=== PATIENT | male | born 1980 | race Hispanic/Latino ===

== ENCOUNTER 2023-03-17 11:48 | Emergency (ER) | payer SELFPAY ==
[2023-03-17] VITALS (8 sets, daily range): BP systolic 120–143; BP diastolic 77–104
[~2023-03-17] VITALS: Ht 165.1 cm; Wt 78.4 kg
[2023-03-17 12:41] LABS: URINE BILIRUBIN - DIPSTICK SEE COMMNET (NEGATIVE); URINE BLOOD DIPSTICK NEGATIVE (NEGATIVE); URINE COLOR YELLOW; URINE GLUCOSE - DIPSTICK NEGATIVE (NEGATIVE); URINE KETONE TRACE mg/dL (NEGATIVE); URINE LEUK ESTERASE NEGATIVE (NEGATIVE); URINE PH 5.5 (4.5-8.0); URINE PROTEIN - DIPSTICK 30 mg/dL (NEG-TRACE); URINE SPECIFIC GRAVITY >=1.030; URINE UROBILINOGEN - DIPSTICK 0.2 E.U./dL (0.2)
[2023-03-17 12:42] LABS: URINE NITRITE - DIPSTICK NEGATIVE (Negative)
[2023-03-17 12:53] LABS: URINE CALCIUM OXALATE CRYSTALS FEW lpf
[2023-03-17 12:54] LABS: URINE MUCUS MODERATE hpf (NONE-FEW)
[2023-03-17 12:55] LABS: URINE HYALINE CAST FEW lpf (NONE-RARE)
[2023-03-17 13:10] LABS: BASO% 0.8 % (0-3); EOS% 1.2 % (0-8); HEMATOCRIT 42.9 % (39.0-50.0); HEMOGLOBIN 14.4 g/dl (14.0-18.0); IMMATURE GRANULOCYTES 0.1 % (0.0-5.0); LYMPH% 22.9 % (15-41); MEAN CELL VOLUME 92.3 fL CALC (80.0-100.0); MEAN CORPUSCULAR HGB CONC 33.6 g/dL CAL (32.0-36.0); MONO% 7.5 % (2-13); NEUT# 5.12 thou/uL (1.82-7.42); NEUT% 67.5 % (42-76); RED BLOOD COUNT 4.65 mill/uL (4.70-6.10)
[2023-03-17 13:13] LABS: ALBUMIN 4.8 g/dL (3.2-5.0); ALKALINE PHOSPHATASE 63 u/l (38-126); ANION GAP 14 (6-22 (CALC)); BILIRUBIN, TOTAL 0.7 mg/dL (0.2-1.3); BUN 15 mg/dL (9-20); BUN/CREATININE RATIO 16 (12-20 (CALC)); CARBON DIOXIDE 24 mmol/l (22-30); CHLORIDE 107 mmol/l (95-108); CREATININE 0.9 mg/dL (0.7-1.3); GFR FOR AFR.AMER. > 60 ML/MIN (>=60 (CALC)); GFR OTHER RACES > 60 ML/MIN (>=60 (CALC)); POTASSIUM 4.2 mmol/l (3.5-5.1); SGOT/AST 35 u/l (17-59); SODIUM 140 mmol/l (137-146); TOTAL PROTEIN 8.1 g/dL (6.3-8.2)
[2023-03-17] MEDS ORDERED: ZOFRAN4 MG/TAB PO (15:47)
[2023-03-17] MEDS ORDERED: IMODIUM2 MG PO (15:47)
== END 2023-03-17 16:15 | disposition home or self-care (01) | DRG 392 ==
LOC: ED 11:48
PROVIDERS: Family Medicine
DX: R11.2 Nausea with vomiting, unspecified (principal); R19.7 Diarrhea, unspecified